=== PATIENT | female | born 1995 | race Caucasian/White ===

== ENCOUNTER 2020-08-27 05:48 | Emergency (ER) | payer OTHER, MEDICAID ==
[~2020-08-27] VITALS: Ht 165.1 cm; Wt 56.7 kg
[2020-08-27 05:48] VITALS: BP 90/45
--- NOTE | 2020-08-27 05:48 | NUR ---
PT [facility]. TAKEN TO BED 3
--- NOTE | 2020-08-27 05:50 | NUR ---
A&OX4, 25 Y/O FEMALE, PT STATES "ATE MUSHROOMS LAST NIGHT", CALM AFFECT, DROWSY, AROUSABLE TO VERBAL STIMULI, DILATED PUPILS AT 8mm BRISK PERRLA, CLEAR/MUMBLED SPEECH. PACEMAKER. PT STATES "VERY TIRED", GEN WEAKNESS NOTED. PT DENIES ANY PAIN, PT HAS SURGICAL SCAR TO MEDIAL CHEST, PT STATES LAST SX X5 YEARS AGO. PMH: HTN, MIGRAINES, DEPRESSION, PALPITATIONS, HYPOPLASTIC LEFT HEART SYNDROME, ASTHMA, GERD, PACEMAKER, hx OF BLOOD TRANSFUSION. PSxH: SALOME PROCEDURE (1996), BRYAN SHUNT (1997), FONTAN PROCEDURE (2013), CARDIAC PACEMAKER PLACEMENT, BILATERAL HEART CATH. RX: UNABLE TO OBTAIN, PT STATES "ON MANY MEDICATIONS"
[2020-08-27] MEDS ORDERED: LORazepam 0.5 MG TAB PO STA (05:56)
--- NOTE | 2020-08-27 06:11 | NUR ---
Dr. Callahan examining patient.
--- NOTE | 2020-08-27 06:12 | NUR ---
EKD DONE AT BEDSIDE Addendum: 08/27/20 at 0730 by [email or web address] EKG DONE AT BEDSIDE
--- NOTE | 2020-08-27 06:20 | NUR ---
MD AWARE OF PTs V/S, NO NEW ORDERS AT THIS TIME
[2020-08-27] MEDS ORDERED: NACL 0.9% 250 ML IV STA (06:34)
--- NOTE | 2020-08-27 06:37 | NUR ---
MD AWARE OF LATEST V/S: O2 86%, HR: 75, BP: 79/54, RR13. PER MD, ADMINISTER 250ML BOLUS STAT
[2020-08-27 06:40] LABS: BASOPHILS % (AUTO) 0.3 % (0.0-2.0); EOSINOPHILS # (AUTO) 0.1 K/uL (0-0.4); EOSINOPHILS % (AUTO) 1.2 % (0.0-4.0); HEMATOCRIT 47.1 % (36-48); LYMPHOCYTES # (AUTO) 0.8 K/uL (2.5-16.5); MEAN CORPUSCULAR HEMOGLOBIN 33 pg (27-31); MEAN CORPUSCULAR HGB CONC 34 g/dL (33-37); MEAN CORPUSCULAR VOLUME 95.3 fL (80-94); MONOCYTES # (AUTO) 0.6 K/uL (0.8-1.0); MONOCYTES % (AUTO) 6.5 % (1.7-9.3); NEUTROPHILS # (AUTO) 8.2 K/uL (1.8-7.7); PLATELET COUNT (AUTO) 120 K/uL (140-450); RED BLOOD CELL COUNT(AUTO) 4.94 MIL/uL (4.20-5.40); RED CELL DISTRIBUTION WIDTH 13.7 % (11.6-13.7); WHITE BLOOD COUNT (AUTO) 9.7 K/uL (4.8-10.8)
[2020-08-27 06:45] VITALS: BP 90/38
--- NOTE | 2020-08-27 06:45 | NUR ---
PER PATIENT, OKAY TO GIVE INFORMATION TO MOTHERMILAGRO.
--- NOTE | 2020-08-27 06:47 | NUR ---
DR. PINEDA SPEAKING WITH PT MOTHER OVER THE PHONE
--- NOTE | 2020-08-27 06:53 | NUR ---
PER MD, MOTHER OF PT STATES THAT PT DOES NOT TOLERATE HIGH FLUID VOLUMES OF FLUID AND PER MOM V/S ON RT ARM SBP IS IN 90s. PER MD REDUCE FLUID RATE TO 100ML/HR.
--- NOTE | 2020-08-27 07:10 | NUR ---
gave report to renea newman. endorsed care at this time.
[2020-08-27 07:16] LABS: PROTHROMBIN TIME 11.5 secs (10.8-13.4)
[2020-08-27 07:21] LABS: ALBUMIN 4.4 g/dL (3.4-5.0); CARBON DIOXIDE 26.1 mmol/L (21-32); CREATININE 0.9 mg/dL (0.6-1.3); POTASSIUM 4.1 mmol/L (3.5-5.1); TOTAL BILIRUBIN 0.6 mg/dL (0.0-1.0)
--- NOTE | 2020-08-27 08:11 | NUR ---
PATIENT RESTING IN BED WITH EYES CLOSED. REMAINS ON BEDSIDE MONITOR. MOTHER ON THE WAY TO PICK PATIENT UP FROM [facility].
--- NOTE | 2020-08-27 09:10 | NUR ---
PATIENT ABLE TO AMBULATE WITH NO DIFFICULTY.
[2020-08-27 09:12] VITALS: BP 96/49
--- NOTE | 2020-08-27 09:12 | NUR ---
Patient discharged with v/s stable. Written and verbal after care instructions given and explained. Patient verbalized understanding. Ambulatory with steady gait. All questions addressed prior to discharge. Advised to follow up with PMD.
== END 2020-08-27 09:12 | disposition home or self-care (01) ==
LOC: MED 05:48
DX: F10.19 Alcohol abuse with unspecified alcohol-induced disorder (principal); I51.9 Heart disease, unspecified
CPT/HCPCS: 36415; 80053; 84484; 85025; 85610; 93005; 96360; 96361; 99285; J7030